=== PATIENT | male | born 1960 | race Caucasian/White ===

== ENCOUNTER → 2017-06-06 | Outpatient (CLI) | payer OTHER ==
[~2017-06-06] MED LIST: ALBUTEROL17 GM INH; ASPIRIN; BACLOFEN10 MG PO; BACTRIM DS TABL1 TAB PO; CLEOCIN HCL300 M1 PO; FAMOTIDINE; FLEXERIL10 MG PO; IBUPROFEN800 MG PO; LORTAB 5/500 TA1 TA1 PO; NAPROSYN500 MG PO; NORVASC; PRAVASTATIN SOD20 MG PO; ZANTAC PO
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
== END | disposition home or self-care (01) ==
LOC: CMRI 17:38
DX: M54.81 Occipital neuralgia (principal); R51 Headache
CPT/HCPCS: 70553; A9577